=== PATIENT | female | born 1985 | race Caucasian/White ===

== ENCOUNTER 2017-05-01 05:39 | Day surgery (SDC) | payer OTHER ==
[~2017-05-01] VITALS: Ht 152.4 cm; Wt 72.0 kg
[2017-05-01] VITALS (14 sets, daily range): BP systolic 97–130; BP diastolic 54–86; PULSE 60–78; RESP 12–17; O2SAT 94–99
[~2017-05-01 05:39] MED LIST: ALBU8.5H2 INHALATION; Clindamycin 600 mg/50 mL D5W IV ONE
[2017-05-01] MEDS ORDERED: Ondansetron 2 mg/mL 2 mL Inj ONE (05:40)
[2017-05-01] MEDS ORDERED: Dexamethasone 4 mg/mL Inj ONE (05:40)
[2017-05-01] MEDS ORDERED: Phenylephrine/NS 100 mCg/mL 10 mL Syringe IVPUSH ONE (05:40)
[2017-05-01] MEDS ORDERED: Succinylcholine Chloride 20 mg/mL 5 mL Inj ONE (05:40)
[2017-05-01] MEDS ORDERED: HYDROmorphone 1 mg/mL Inj ONE (05:40)
[2017-05-01] MEDS ORDERED: fentaNYL-PF 50 mCg/mL 2 mL Inj ONE (05:40)
[2017-05-01] MEDS ORDERED: Ketamine 10 mg/mL 20 mL Inj ONE (05:40)
[2017-05-01] MEDS ORDERED: Propofol 10,000 mCg/mL 20 mL Inj ONE (05:40)
[2017-05-01] MEDS ORDERED: Clindamycin 600 mg/50 mL D5W Premix IV ONE (05:58)
[2017-05-01] MEDS: Lactated Ringer's 1,000 ML IV SCH ×3 (06:05→10:58)
[2017-05-01] MEDS ORDERED: Lactated Ringer's 1,000 ML IV SCH (06:51)
[2017-05-01] MEDS ORDERED: Lactated Ringer's 500 ML IV PRN (06:51)
[2017-05-01] MEDS ORDERED: Dexamethasone 4 mg/mL Inj IVPUSH PRN (06:55)
[2017-05-01] MEDS ORDERED: HYDROmorphone 1 mg/mL Inj IVPUSH PRN (06:55)
[2017-05-01] MEDS ORDERED: Labetalol 5 mg/mL 4 mL Inj IV PRN (06:55)
[2017-05-01] MEDS ORDERED: Ondansetron 2 mg/mL 2 mL Inj IVPUSH PRN (06:55)
[2017-05-01] MEDS ORDERED: hydrALAZINE 20 mg/mL Inj IVPUSH PRN (06:55)
[2017-05-01] MEDS ORDERED: Phenylephrine 10,000 mCg/mL Inj IVPUSH PRN (06:55)
[2017-05-01] MEDS ORDERED: MetoCLOpramide 5 mg/mL 2 mL Inj IVPUSH PRN (06:55)
[2017-05-01] MEDS ORDERED: EPHEDrine Sulfate 50 mg/mL Inj IVPUSH PRN (06:55)
--- NOTE | 2017-05-01 07:19 | PCM.HPANE ---
Patient Data Date of Service: May 01, 2017 Surgeon Admitting Provider: Attending Provider:Arnoldo Lobato MD Primary Care Physician:Carlos Chew MD Other Provider:Mukund Aly Anesthesia Reason for Visit Left Acl Tear Ht/WT & BMI Height (Feet): 5 Height (Inches): 0 Weight (Kilograms): 72.0 Body Mass Index 31.00 Allergies Coded Allergies: amoxicillin (Verified Allergy, Unknown, elicited [place] Palsy, 04/24/17) Past Anesthesia History Anesthesia History: Denies:: Abnormal Airway, Anesthesia Reactions (nausea post op - uses essential oils ), Difficult Intubation, Fam Anesthesia Reaction, Malignant Hyperthermia Diabetes History Hx Diabetes?: No MRSA MRSA: No Medications Hypertension Medication: No Home Meds Incl Beta Rachel: No Reported Medications Albuterol HFA (Proair HFA)8.5 Gm Hfa.aer.ad2 Puffs INHALATION Q4H PRN For Shortness of Breath #1 INHALER 04/24/17 History History of ENT Problems?: No HEENT History: Denies:: Abnormal Airway Difficult Intubation Dysphagia Hearing Problem Sinus Problem TMJ Denture Type: None Teeth Condition: Within Normal Limits Hx of Heart Problems?: No Cardiovascular History: Denies:: AICD Abdominal Aortic Aneurism Atrial Fibrillation Cardiac Surgery Chest Pain Congestive Heart Failure Coronary Artery Disease Edema Heart Murmur Hypertension Irregular Heartbeat Pacemaker Peripheral Vascular Rheumatic Fever Hx of Respiratory Problem?: Yes Respiratory History: Positive for:: Asthma Use of Inhalers / NEBS Denies:: COPD Emphysema Oxygen Administration Pneumonia Tuberculosis Use of C-PAP Machine Hx Neurologic Problems?: No Neurological History: Denies:: Alzheimer's Disease CVA Dementia Dizziness Headaches Multiple Sclerosis Parkinson's Disease Seizures TIA Other Neurological Pertinent: 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 Skin History: Denies:: History Skin Disorders? Pressure Ulcers Hx Musculoskeletal Problems?: Yes Musculoskeletal History: Positive for:: Musculoskeletal Trauma (left knee acl current admission problem) Denies:: Back Injury Fibromyalgia Joint Replacement Osteoarthritis Hx of Psycho/Social Problems?: No Psycho Social History: Denies:: Anxiety Hx Depression Hx Surgeries?: Yes (ORIF ankle, hardware ) Hx Any Other Health Problems?: Yes Other History: Denies:: Cancer Thyroid Disease History Blood Transfusions: Positive for:: Accept Blood Products? Denies:: Blood Transfusions Hx Diabetes: No Hx Alcohol Use: YesAlcoholic Drinks Per Day: occasional- once monthlyHx Substance Use: NoHave You Smoked inLast 12 mo: No Stop/Bang S-Snoring: Do You Snore Loudly: No T-Tired: feel tired, fatigued: No O-Obsered: Observed not breath: No P-Blood Pressure: treated: No B- Body Mass Index > 35 kg/m2: No A- Age over 50: No N- Neck Large Circumference: No G- Gender Male: No ANSELMO Total Score: 0 ANSELMO Risk Assessment: Low Risk, <3 Yes Risk Assessment Category Category 1A: Patient has history of documented sleep apnea, and HAS NOT received any narcotic, sedative or anesthesia administration during this stay. Category 1B: Patient has history of documented sleep apnea, and HAS received any narcotic , sedative or anesthesia administration during this stay Category 2: Patient has SUSPECTED Obstructive Sleep Apnea, and HAS received any narcotic , sedative or anesthesia administration during this stay. Category 3: Patient has SUSPECTED Obstructive Sleep Apnea and HAS NOT received narcotic, sedative or anesthesia administration during this stay. Category 4: Outpatient in Procedural Areas with known sleep apnea or who screen positive for High Risk via the STOP/BANG questionnaire. Exam Exam Vital Signs Vital Signs Date Time Temp Pulse Resp B/P Pulse Ox O2 Delivery O2 Flow Rate FiO2 05/01/17 06:05 36.2 68 16 110/65 98 Room Air General Appearance: Alert, Oriented X3, Cooperative, No Acute Distress HEENT/AIRWAY: MP 1, Other (retrognathia) Lungs: Clear to Auscultation, Normal Air Movement Heart: Exam Unremarkable, Regular Rate/Rhythm, No Murmurs/Rubs/Gallops Meds/Labs/Diagnostics Admission Meds Current Medications Lactated Ringer's (Lr) 1,000 ml @ 120 mls/hr Q8H20M IV Last administered on t 06:05; Start 05/01/17 at 05:00; Stop 05/01/17 at 13:19 Plan Impression Patient chart reviewed, patient interviewed and anesthestic plan with risks, benefits, and alternatives discussed, and informed consent obtained. NPO per Anesth. Guidelines: Yes ASA Physical Status: ASA2 Mod Systemic Disease Anesthetic Support Modalities: [place] Scope Anesthetic Plan: GA, Regional Block Bene/Risks/Altern/Consents: Yes HP Complete Prior to Induction: Yes Yuri Staley MD May 01, 2017 07:19
[2017-05-01] MEDS ORDERED: Ropivacaine-PF 0.5% 30 mL Inj INFILTRATE ONE (08:11)
[2017-05-01] MEDS ORDERED: Bacitracin 50,000 unit Inj IRRIGATION ONE (08:11)
[2017-05-01] MEDS ORDERED: HYDROcodone-APAP 5-325 mg Tablet PO PRN (09:25)
[2017-05-01] MEDS ORDERED: Ketorolac 15 mg/mL Inj IVPUSH ONE (09:25)
--- NOTE | 2017-05-01 09:33 | PCM.ORTHOP ---
Orthopedic Operative Report Date of Service: May 01, 2017 Pre Operative Diagnosis Left knee anterior cruciate ligament tear Post Operative Diagnosis Same Procedure Left knee arthroscopy, anterior cruciate ligament reconstruction with hamstring autograft with allograft, partial synovectomy Surgeon Surgeon: Arnoldo Lobato MD Assistants: Regis Preston Indication for Procedure Left anterior cruciate ligament tear Findings Per dictation Details of Procedure CONTROL CLERK SUBASSEMBLY SURGEON: During the operation, the services of a physician captain assistant were medically indicated and necessary to provide exposure of the operative site for the surgical procedure and to maintain the limb in a proper position to carry out the operation safely and efficiently. Without the qualified coding assistant being present, it would have extended the operative procedure and made the procedure technically more difficult to perform. INDICATIONS: The patient is Monserrat Jaime was a 31-year-old female patient with a prolonged history of left knee giving way. The patient has had continued episodes of instability. The patient has restored their range of motion and is now brought to the operating room for ACL reconstruction, possible partial medial and lateral meniscectomy versus medial and lateral meniscal repair, chondroplasty and debridement. The risks, benefits, and alternatives of surgery were discussed with the patient. The risks included but were not limited to infection, bleeding, damage to vessels and nerves, loss of motion, continued pain, re-tear of the meniscus, deep venous thrombosis, and complications due to anesthesia including nerve injury, myocardial infarction, stroke, , etc. The patient stated understanding of the nature of the surgical procedure and gave written and verbal consent to proceed. PROCEDURE: The patient was brought to the operating room and placed supine on the operating room table. General anesthesia was induced and adductor canal block was placed. The left lower extremity was examined under anesthesia. Range of motion was 10 degrees of hyperextension to 135 degrees of flexion. There was no varus or valgus or posterolateral instability. The patient had no instability to varus or valgus stress at 0 or 30 degrees. The patient had a 2+ Suly and drawer with a positive pivot shift. The left lower extremity was then prepped and draped in the usual fashion. A tourniquet was placed proximally on the thigh over a bias stockinette. A standard anterolateral parapatellar stab wound was created. The knee joint was entered with a blunt- tipped obturator, followed by the 30-degree video arthroscope. An anteromedial portal was established under arthroscopic control. A routine arthroscopic survey was performed. The suprapatellar pouch was unremarkable. The undersurface of the patella was well-preserved. The patella appeared to track centrally within the trochlear groove. The medial and lateral gutters were inspected and there was no loose body seen. There was no hypertrophied plica. The popliteal hiatus was entered and was unremarkable. The lateral compartment was entered. The articular surfaces of the lateral femoral condyle was largely well maintained. There was no chondromalacia adjacent to the notch. There was no chondromalacia along the central aspect of the weight bearing lateral tibial plateau. The lateral meniscus was intact and stable to probing. The intercondylar notch was visualized. The anterior cruciate ligament was torn from it's femoral origin. There was an empty lateral wall. Posteromedially there was no loose body seen. The posterior cruciate ligament was visualized and appeared intact. Moderate synovitis was noted anteriorly in the medial and lateral compartment and debrided with a shaver. The medial compartment was entered. The articular surfaces of the medial femoral condyle and medial tibial plateau were visualized. There was no chondromalacia noted on the medial femoral condyle, and no chondromalacia noted on the medial tibial plateau. The medial meniscus was visualized and appeared intact and was stable to probing. Moderate synovitis was noted anteriorly in the medial and lateral compartment and debrided with a shaver. Attention was turned to reconstruction of the anterior cruciate ligament. Following exsanguination with an Esmarch bandage the tourniquet was inflated to 250 mm of mercury. Using a motorized shaver a notchplasty was performed, exposing the lateral wall and roof of the notch, identifying the [id number]-fen position. The stump of the anterior cruciate ligament was debrided. An Arthrex guide was placed intra-articularly between the tibial spines in line with the anterior horn of the lateral meniscus. A Bernadette wire was then inserted into the knee through a 2 cm incision made over the proximal medial tibia. The incision was deepened through the subcutaneous tissue with subperiosteal dissection achieved. Bleeding points were coagulated with the Bovie electrocautery. Moderate synovitis was noted anteriorly in the medial and lateral compartment and debrided with a shaver. A small longitudinal incision opposite the tibial tubercle, midway between the tubercle and the the posterior edge of the tibia was made. Careful palpation of the pes anserinus was performed and the saphenous nerve was identified and protected. An incision was made directly over and in line with the gracilis tendon, the tendon sheath was opened and adhesions and fibrous extensions that attach to the sheath were released. The semitendinosis and gracilis tendons were harvested proximally with the appropriately sized tendon stripper. The residual muscle was removed, measured and placed in a moistened sponge, but not submerged in saline. The paratenon surrounding the semitendinosus was preserved. Given the size of her [place] hamstring, a hamstring allograft was opened and prepared at the back table for hypertension augmentation, together accommodating a 9.5 mm graft on the femoral side and 9.5 mm graft on the tibial side. Tibial drilling was then carried out first with a 5 mm followed by a 9.5 mm cylindrical reamer with the guide set at 55 degrees. The Beath pin was drilled out the femoral cortex and skin. The femoral tunnel was then created, with an Arthrex flipcutter. Depth-gauging confirmed a tunnel length of 37 mm. An Arthrex EndoButton was selected. The graft was inserted intra- articularly and the EndoButton was deployed. The graft was cycled for 17 cycles with 25 pounds of force to pre-load the graft. Tibial fixation was carried out using a 8-10 PEEK Intra-Fix in 10 degrees of flexion with a posterior drawer. At the completion of surgery the patient had a firm stable Suly. The patient had a 0 firm Suly and a negative pivot shift. There was no evidence for any roof or lateral wall impingement. The tourniquet was deflated. The knee was irrigated with two liters of lactated Ringer's solution. Excess fluid was drained. The tibial wounds were then copiously irrigated with bacitracin solution and closed in layers with #0, #2-0 and #3-0 Vicryl. The skin was reapproximated with #4-0 Monocryl. The knee was injected with 20 cc of 0.5% plain ropivacaine and 4 mg of Duramorph. A dry sterile dressing was applied, followed by a bulky bandage and MARGARETTE stocking. A postoperative TROM brace was applied locked in full extension. The patient was awakened in the Operating Room and transported to the Recovery Room in satisfactory condition. The patient appeared to tolerate the procedure well. At the completion of surgery the patient had soft compartments, palpable pulses, and brisk capillary refill. There were no complications noted. [ I discussed at length the risks, complications and implications of tobacco products and its effect on the treatment plan and outcomes. The patient has voiced understanding and has agreed to cease consumption of such products for a minimum of the duration of the entire course of treatment.] Please keep dressing clean dry and intact. Do not remove dressing until follow- up in clinic. If the dressing become soaked, you may remove the outer gauze and placed Band-Aids on the wounds. You may weight-bear as tolerated with the brace on at all times. Do Not Bend Your Knee. You may place a pillow under your heel and NOT your knee. You will follow up in clinic in 10-14 days for suture removal, and placement of new Steri-Strips. You will follow-up with me in clinic, and we will start physical therapy. You will follow-up with me every 6 weeks while you progress in your rehab and will be released once cleared by PT around 9-12 months. Please see me prior to full release. Please keep the affected extremity elevated when possible. Please take aspirin as instructed if prescribed. You will take antibiotics 4 times daily for 3 days. You may use ice and/or heat as needed for comfort. (preferably ice during the first 48-72 hours)Please feel free to call with any further questions, comments , and/or concerns. Grafts, Implants: Implants-See Implant Record Complications There were no periprocedural complications identified. Condition Stable Anesthetic Administered: GA Catheters: None Output, Estimated Blood Loss: 5 Blood Admin during surgery: No Surgical Cast or Splint: Other Surgical Specimen Removed: No Specimen sent to Pathology: No copies to: Arnoldo Lobato MD, Christopher L MD May 01, 2017 09:33
[2017-05-01] MEDS ORDERED: Promethazine Inj 25 MG in Dextrose 5%-Pha MIX 50 ML IV STA (09:45)
[2017-05-01] MEDS: fentaNYL-PF 50 mCg/mL 2 mL Inj IVPUSH PRN ×2 (10:17→11:00)
--- NOTE | 2017-05-01 14:56 | PCM.ANEP1 ---
Post Anesthesia PACU Phase 1 Assessment Vital Signs Vital Signs Date Time Temp Pulse Resp B/P Pulse Ox O2 Delivery O2 Flow Rate FiO2 05/01/17 13:00 61 17 98 Room Air 05/01/17 12:26 68 12 100/58 98 Room Air 05/01/17 11:40 62 14 97/60 98 05/01/17 11:30 60 15 114/54 95 Room Air 05/01/17 11:15 62 17 104/62 94 Room Air 05/01/17 11:00 75 16 115/78 99 Nasal Cannula 1 05/01/17 10:45 75 15 113/65 98 Nasal Cannula 1 05/01/17 10:30 78 17 121/79 99 Nasal Cannula 2 05/01/17 10:15 64 16 125/80 97 Nasal Cannula 3 05/01/17 10:00 69 17 130/86 99 Nasal Cannula 3 05/01/17 09:55 74 15 119/79 99 Nasal Cannula 3 05/01/17 09:50 77 17 127/79 96 Nasal Cannula 3 05/01/17 09:45 36.5 74 14 119/72 97 Nasal Cannula 3 Anesthetic Administered: GA, Regional Block Level of Alertness: Awake, talking Pain: Yes (more of a spasm pain. leg is numb) Nausea or Vomiting: No CV Function & Hydration Stable: Yes Airway Device: Oxygen Delivery: Room Air Lungs: Clear to Auscultation, Normal Air Movement PACU Phase 2 Assessment Complications: No Follow up Care: No Patient Instructions Provided: N/A Yuri Staley MD May 01, 2017 14:56
== END 2017-05-01 23:59 | disposition home or self-care (01) ==
LOC: SAS 05:39
PROVIDERS: ATTEND Orthopaedic Surgery
DX: S83.512A Sprain of anterior cruciate ligament of left knee, initial encounter (principal); M25.562 Pain in left knee; J45.30 Mild persistent asthma, uncomplicated; F17.210 Nicotine dependence, cigarettes, uncomplicated; Z79.51 Long term (current) use of inhaled steroids
CPT/HCPCS: 29881; 29888; 76942; C1713; C1762; J0330; J1100; J1170; J1885; J2250; J2270; J2370; J2405; J2550; J2795; J3010; J7120